=== PATIENT | male | born 1955 | race African-American/Black ===

== ENCOUNTER 2020-04-28 12:58 | Inpatient (IN) | payer BC, MEDICAID, OTHER ==
[~2020-04-28] VITALS: Ht 180.3 cm; Wt 80.5 kg
[2020-04-28 14:29] LABS: CHLORIDE 107 mEq/L (98-107)
[2020-04-28 14:30] LABS: BASOPHILS % 0.4 % (0.0-2.0); EOSINOPHILS % 1.7 % (0.0-5.0); HEMATOCRIT. 37.5 % (42.0-52.0); HEMOGLOBIN. 12.7 g/dL (14.0-18.0); LYMPHOCYTES % 32.4 % (20.0-50.0); MEAN CORPUSCULAR HEMOGLOBIN 31.6 pg (28.0-32.0); MEAN CORPUSCULAR VOLUME 93.1 fL (80.0-94.0); MEAN PLATELET VOLUME 9.2 fl (7.4-10.4); MONOCYTES % 10.3 % (2.0-8.0); NEUTROPHILS % 55.2 % (40.0-76.0); PLATELET 190 x1000/uL (130-400); RED BLOOD CELL COUNT 4.03 mill/uL (4.7-6.1); RED CELL DISTRIBUTION WIDTH 15.8 % (11.6-14.6)
[2020-04-28] MEDS ORDERED: LIDOCAINE 1%/EPI 1:100,000 10 ML VIAL IJ ONE (14:30)
[2020-04-28] MEDS ORDERED: TETANUS, DIPHTHERIA, PERTUSSIS VAC/PF 0.5ML (>7YR OLD) IM ONE (14:30)
[2020-04-28 14:32] LABS: INR 1.1; PROTHROMBIN TIME 11.5 sec (9.6-11.0)
[2020-04-28] MEDS ORDERED: LIDOCAINE HCL/EPINEPHRINE 1%-EPI 1:100,000 20 ML VIAL INFIL NR (15:15)
[2020-04-28 15:30] LABS: CREATINE KINASE 355 IU/L (39-308)
[2020-04-28 15:35] LABS: CREATINE KINASE MB FRACTION 1.7 ng/mL (0.5-3.6)
[2020-04-28] MEDS ORDERED: ACETAMINOPHEN 650MG/20.3ML UDC GT PRN ×2 (16:45)
[2020-04-28] MEDS ORDERED: DOCUSATE SODIUM 100MG CAPSULE PO PRN (16:45)
[2020-04-28] MEDS ORDERED: MAGNESIUM/ALUMINUM HYDROXIDE/SIMETHICONE 30ML UDC PO PRN (16:45)
[2020-04-28] MEDS ORDERED: DIPHENHYDRAMINE 50MG/ML VIAL IV PRN (16:45)
[2020-04-28] MEDS ORDERED: ACETAMINOPHEN 325MG TABLET PO PRN (16:45)
[2020-04-28] MEDS ORDERED: GUAIFENESIN 200MG/10ML SUGAR FREE UDC PO PRN (16:45)
[2020-04-28] MEDS ORDERED: NA PHOS,M-B/NA PHOS,DI-BA ENEMA 118ML PR PRN (16:45)
[2020-04-28] MEDS ORDERED: CLONIDINE 0.1MG TABLET PO PRN (16:45)
[2020-04-28] MEDS: SODIUM CHLORIDE 0.9% 1,000 ML IV SCH (17:05)
[2020-04-28] MEDS ORDERED: ACETAMINOPHEN 650MG/20.3ML UDC PO PRN (18:45)
[2020-04-28] MEDS: DULOXETINE HCL 60MG DR CAPSULE PO SCH (18:45)
[2020-04-28] MEDS: LORAZEPAM 2MG/ML CPJ IV PRN (18:56)
[2020-04-28 19:29] VITALS: BP 124/80
[2020-04-28 19:45] VITALS: BP 124/87
[2020-04-28 21:56] VITALS: BP 128/70
[2020-04-28 23:51] VITALS: BP 135/65
[2020-04-29] VITALS (11 sets, daily range): BP systolic 104–144; BP diastolic 56–97
[2020-04-29 00:01] LABS: CREATINE KINASE 345 IU/L (39-308)
[2020-04-29 00:02] LABS: CREATINE KINASE MB FRACTION 1.9 ng/mL (0.5-3.6)
[2020-04-29] MEDS ORDERED: POLY250017 MT (05:30)
[2020-04-29] MEDS ORDERED: AMLO10TA80 PO (05:30)
[2020-04-29 06:54] LABS: BASOPHILS % 0.6 % (0.0-2.0); EOSINOPHILS % 1.8 % (0.0-5.0); HEMOGLOBIN. 11.5 g/dL (14.0-18.0); LYMPHOCYTES % 36.7 % (20.0-50.0); MEAN CORPUSCULAR HEMOGLOBIN 31.7 pg (28.0-32.0); MEAN CORPUSCULAR VOLUME 93.6 fL (80.0-94.0); MEAN PLATELET VOLUME 9.2 fl (7.4-10.4); MONOCYTES % 10.7 % (2.0-8.0); NEUTROPHILS % 50.2 % (40.0-76.0); PLATELET 175 x1000/uL (130-400); RED BLOOD CELL COUNT 3.64 mill/uL (4.7-6.1); RED CELL DISTRIBUTION WIDTH 15.2 % (11.6-14.6)
[2020-04-29 07:18] LABS: CHLORIDE 110 mEq/L (98-107)
[2020-04-29 07:27] LABS: LDL CHOLESTEROL 41 mg/dL (5-100)
[2020-04-29 07:28] LABS: CREATINE KINASE 305 IU/L (39-308); HDL CHOLESTEROL 41 mg/dL (40-59)
[2020-04-29 07:31] LABS: CREATINE KINASE MB FRACTION 1.5 ng/mL (0.5-3.6)
[2020-04-29] MEDS: DULOXETINE HCL 60MG DR CAPSULE PO SCH (10:01)
[2020-04-29] MEDS: SODIUM CHLORIDE 0.9% 1,000 ML IV SCH (10:01)
[2020-04-29] MEDS: LORAZEPAM 2MG/ML CPJ IV PRN ×2 (10:46→17:04)
[2020-04-29] MEDS: HALOPERIDOL 0.5MG TABLET PO SCH ×2 (13:21→19:41)
[2020-04-30] VITALS (9 sets, daily range): BP systolic 104–138; BP diastolic 71–96
[2020-04-30] MEDS: HALOPERIDOL 0.5MG TABLET PO SCH (09:26)
[2020-04-30] MEDS: DULOXETINE HCL 60MG DR CAPSULE PO SCH (09:26)
[2020-04-30] MEDS ORDERED: DULO60CA44 PO (12:18)
[2020-04-30] MEDS ORDERED: HALO0.5T2 PO (12:18)
== END 2020-04-30 14:15 | DRG 48 ==
LOC: ER 13:15 → EDBEDREQ 15:46 → ENRESERV 17:07 → 3WST 18:10
PROVIDERS: ADMIT Family Medicine; ATTEND Family Medicine
PROC: 0HQ1XZZ Repair Face Skin, External Approach (ICD-10-PCS; principal; 2020-04-28)
DX: G90.8 Other disorders of autonomic nervous system (principal); S01.81XA Laceration without foreign body of other part of head, initial encounter; I50.9 Heart failure, unspecified; I13.0 Hypertensive heart and chronic kidney disease with heart failure and stage 1 through stage 4 chronic kidney disease, or unspecified chronic kidney disease; I49.3 Ventricular premature depolarization; F91.9 Conduct disorder, unspecified; E11.22 Type 2 diabetes mellitus with diabetic chronic kidney disease; F03.90 Unspecified dementia, unspecified severity, without behavioral disturbance, psychotic disturbance, mood disturbance, and anxiety; F32.9 Major depressive disorder, single episode, unspecified; N18.9 Chronic kidney disease, unspecified; I69.320 Aphasia following cerebral infarction; E78.5 Hyperlipidemia, unspecified; W06.XXXA Fall from bed, initial encounter; Y93.89 Activity, other specified; Y92.89 Other specified places as the place of occurrence of the external cause; Y99.8 Other external cause status
CPT/HCPCS: 36415; 71045; 72170; 80053; 80061; 82550; 82553; 82962; 84443; 84484; 85025; 85379; 90715; 93005; 93306; 93970; 97162; 99285; J2060; J3490

== ENCOUNTER 2025-09-20 03:19 | Inpatient (IN) | payer MEDICAID ==
[~2025-09-20] VITALS: Ht 182.9 cm; Wt 91.2 kg
[~2025-09-20 03:19] MED LIST: AMLO10TA80 PO; CALC-586 MT; COR6 MT; HALO0.5T2 PO; LIP40 MT; POLY250017 MT; SULF1TAB48 PO; TAMS-54 PO
[2025-09-20 03:28] VITALS: O2SAT 94
[2025-09-20 05:42] LABS: BASOPHILS % 0.3 % (0.0-2.0); EOSINOPHILS % 0.4 % (0.0-5.0); HEMATOCRIT. 38.4 % (42.0-52.0); HEMOGLOBIN. 12.6 g/dL (14.0-18.0); LYMPHOCYTES % 25.6 % (20.0-50.0); MEAN PLATELET VOLUME 8.5 fl (7.4-10.4); MONOCYTES % 9.2 % (2.0-8.0); NEUTROPHILS % 64.5 % (40.0-76.0); PLATELET 233 x1000/uL (130-400); RED BLOOD CELL COUNT 4.26 mill/uL (4.7-6.1); RED CELL DISTRIBUTION WIDTH 16.0 % (11.6-14.6)
[2025-09-20 05:48] LABS: CREATININE 1.2 mg/dL (0.6-1.3); UREA NITROGEN BLOOD 12 mg/dL (9-23)
[2025-09-20 07:03] LABS: CLARITY URINE CLOUDY (CLEAR); COLOR URINE YELLOW (YELLOW); GLUCOSE URINE NEGATIVE (NEGATIVE); KETONES URINE NEGATIVE (NEGATIVE); LEUKOCYTE ESTERASE URINE 3+ (NEGATIVE); NITRITE URINE NEGATIVE (NEGATIVE); OCCULT BLOOD URINE 2+ (NEGATIVE); PH URINE 5.5 (4.5-8.0); PROTEIN URINE NEGATIVE (NEGATIVE); SPECIFIC GRAVITY URINE 1.009 (1.005-1.030); UROBILINOGEN URINE 0.2 E.U./dL (0.2-1.0)
[2025-09-20 09:15] LABS: SQUAMOUS EPITHELIAL CELL URINE RARE /lpf (RARE/1+); WBC URINE TNTC /hpf (0-2)
[2025-09-20 09:16] LABS: BACTERIA URINE 2+
[2025-09-20] MEDS ORDERED: CLONIDINE 0.1MG TABLET PO PRN (10:45)
[2025-09-20] MEDS ORDERED: ACETAMINOPHEN 325MG TABLET PO PRN (10:45)
[2025-09-20] MEDS ORDERED: LORAZEPAM 0.5MG TABLET PO PRN (10:45)
[2025-09-20] MEDS ORDERED: ONDANSETRON HCL 4MG/2ML INJ IV PRN (10:45)
[2025-09-20] MEDS ORDERED: IPRATROPIUM/ALBUTEROL 0.5-3(2.5)MG/3ML NEB HHN PRN (10:45)
[2025-09-20] MEDS ORDERED: DOCUSATE SODIUM 100MG CAPSULE PO PRN (10:45)
[2025-09-20] MEDS ORDERED: GUAIFENESIN 200MG/10ML SUGAR FREE UDC PO PRN (10:45)
[2025-09-20 11:00] VITALS: BP 141/67; PULSE 75; RESP 16; TEMP 36.4736
[2025-09-20 12:00] VITALS: BP 138/85; PULSE 75; RESP 16; TEMP 37.1; O2SAT 97
[2025-09-20 16:00] VITALS: BP 135/90; PULSE 85; RESP 18; TEMP 36.9; O2SAT 98
[2025-09-20] MEDS: ACETAMINOPHEN 325MG TABLET PO PRN (17:07)
[2025-09-20 20:00] VITALS: BP 123/84; PULSE 87; RESP 20; TEMP 36.9; O2SAT 87
[2025-09-20] MEDS: ATORVASTATIN CALCIUM 40MG TABLET PO SCH (20:42)
[2025-09-21] VITALS: BP 100/70; PULSE 72; RESP 16; TEMP 36.5; O2SAT 72
[2025-09-21 06:33] LABS: BASOPHILS % 0.4 % (0.0-2.0); EOSINOPHILS % 7.7 % (0.0-5.0); HEMATOCRIT. 38.0 % (42.0-52.0); HEMOGLOBIN. 12.5 g/dL (14.0-18.0); LYMPHOCYTES % 39.5 % (20.0-50.0); MEAN PLATELET VOLUME 8.6 fl (7.4-10.4); MONOCYTES % 11.0 % (2.0-8.0); NEUTROPHILS % 41.4 % (40.0-76.0); PLATELET 228 x1000/uL (130-400); RED BLOOD CELL COUNT 4.22 mill/uL (4.7-6.1); RED CELL DISTRIBUTION WIDTH 15.7 % (11.6-14.6)
[2025-09-21 06:47] LABS: CREATININE 1.0 mg/dL (0.6-1.3)
[2025-09-21 06:48] LABS: UREA NITROGEN BLOOD 14 mg/dL (9-23)
[2025-09-21 06:50] LABS: PHOSPHORUS 2.9 mg/dL (2.5-4.9)
[2025-09-21 08:00] VITALS: BP 136/87; PULSE 77; RESP 18; TEMP 36.7; O2SAT 96
[2025-09-21] MEDS: AMLODIPINE 10MG TABLET PO SCH (09:13)
[2025-09-21 12:00] VITALS: BP 134/84; PULSE 76; RESP 18; TEMP 36.7; O2SAT 98
[2025-09-21 16:00] VITALS: BP 130/82; PULSE 74; RESP 18; TEMP 36.8; O2SAT 98
[2025-09-21] MEDS ORDERED: LEVO750T68 MT (16:09)
[2025-09-21 20:00] VITALS: BP 136/102; PULSE 93; RESP 18; TEMP 36.6; O2SAT 100
[2025-09-22] VITALS: BP 139/92; PULSE 79; RESP 17; TEMP 36.8; O2SAT 96
[2025-09-22 04:00] VITALS: BP 143/92; PULSE 73; RESP 18; TEMP 36.6; O2SAT 96
[2025-09-22] MEDS: SODIUM CHLORIDE 0.9% 500 ML IV ONE (07:45)
[2025-09-22 08:00] VITALS: BP 140/95; PULSE 72; PULSE 73; RESP 18; TEMP 36.1; O2SAT 100
[2025-09-22 12:00] VITALS: BP 147/98; PULSE 88; RESP 18; TEMP 36.2; O2SAT 97
== END 2025-09-22 16:00 | DRG 466 ==
LOC: ER 03:19 → 7WST 06:51 → EDBEDREQ 07:04 → EDBEDREQTM 07:04 → ENRESERV 09:11 → 6EST 18:12
PROVIDERS: ADMIT Internal Medicine; ATTEND Internal Medicine
DX: T83.098A Other mechanical complication of other urinary catheter, initial encounter (principal); L89.153 Pressure ulcer of sacral region, stage 3; Z66 Do not resuscitate; L89.313 Pressure ulcer of right buttock, stage 3; L89.323 Pressure ulcer of left buttock, stage 3; I11.0 Hypertensive heart disease with heart failure; N39.0 Urinary tract infection, site not specified; F03.90 Unspecified dementia, unspecified severity, without behavioral disturbance, psychotic disturbance, mood disturbance, and anxiety; F32.A Depression, unspecified; T83.091A Other mechanical complication of indwelling urethral catheter, initial encounter; N40.0 Benign prostatic hyperplasia without lower urinary tract symptoms; F41.9 Anxiety disorder, unspecified; E78.5 Hyperlipidemia, unspecified; Z74.01 Bed confinement status; Y73.8 Miscellaneous gastroenterology and urology devices associated with adverse incidents, not elsewhere classified; Z79.899 Other long term (current) drug therapy
CPT/HCPCS: 36415; 80048; 81003; 83735; 84100; 85025; 87077; 87186; 93005; A4606